=== PATIENT | female | born 1950 | race Hispanic/Latino ===

== ENCOUNTER → 2018-01-10 | Outpatient (CLI) | payer OTHER ==
[~2018-01-10] MED LIST: CALC-877 PO; CHOL100040 PO; DORZ10DR10 OU; EYEL15SP OU; RALO60TA PO; XALA2.5OS OU; [UNRECOGNIZED DRUG - OTHER]; estradiol VG; omega 3 PO; prelief
== END ==
LOC: RAH 10:27
PROVIDERS: ATTEND Physician Assistant Medical
DX: Z12.31 Encounter for screening mammogram for malignant neoplasm of breast (principal)
CPT/HCPCS: 77067

== ENCOUNTER 2018-02-01 07:55 | Day surgery (SDC) | payer OTHER ==
[~2018-02-01] VITALS: Ht 149.9 cm; Wt 52.3 kg
[~2018-02-01 07:55] MED LIST changes: +SODIUM CHLORIDE 0.9% 1000ML 1,000 ML IV ONE
[2018-02-01] MEDS ORDERED: FENTANYL CITRATE PF 50 MCG/1 ML 2ML VIAL ONE (09:13)
[2018-02-01] MEDS ORDERED: PROPOFOL 10 MG/ML 20ML VIAL IV ONE ×2 (09:13)
[2018-02-01 09:37] VITALS: BP 67/29
== END 2018-02-01 10:15 | disposition home or self-care (01) ==
LOC: DAH 07:55 → ENDO 07:55
PROVIDERS: ATTEND Internal Medicine Gastroenterology
DX: Z12.11 Encounter for screening for malignant neoplasm of colon (principal); Z98.890 Other specified postprocedural states; H40.9 Unspecified glaucoma; Z79.899 Other long term (current) drug therapy; K56.2 Volvulus
CPT/HCPCS: A4606; G0121; J2704 ×2; J3010; J7030

== ENCOUNTER → 2019-01-11 | Outpatient (CLI) | payer OTHER ==
[~2019-01-11] MED LIST changes: -SODIUM CHLORIDE 0.9% 1000ML 1,000 ML IV ONE
== END ==
LOC: RAH 11:17
PROVIDERS: ATTEND Internal Medicine Critical Care Medicine
DX: Z12.31 Encounter for screening mammogram for malignant neoplasm of breast (principal)
CPT/HCPCS: 77067

== ENCOUNTER → 2020-01-15 | Outpatient (CLI) | payer OTHER | END | disposition home or self-care (01) | LOC: RAH 11:43 | PROVIDERS: ATTEND Internal Medicine Critical Care Medicine | DX: Z12.31 Encounter for screening mammogram for malignant neoplasm of breast (principal) | CPT/HCPCS: 77067 ==

== ENCOUNTER → 2021-02-10 | Outpatient (CLI) | payer OTHER | END | disposition home or self-care (01) | LOC: RAH 10:51 | PROVIDERS: ATTEND Internal Medicine Critical Care Medicine | DX: Z12.31 Encounter for screening mammogram for malignant neoplasm of breast (principal); N64.89 Other specified disorders of breast | CPT/HCPCS: 77067 ==

== ENCOUNTER 2023-02-05 18:53 | Inpatient (IN) | payer OTHER ==
[~2023-02-05] VITALS: Ht 152.4 cm; Wt 52.3 kg
[~2023-02-05 18:53] MED LIST changes: -[UNRECOGNIZED DRUG - OTHER]; +[UNRECOGNIZED DRUG - OTHER] PO
[2023-02-05 19:26] LABS: APPEARANCE,URINE CLEAR (CLEAR); BILIRUBIN,URINE NEGATIVE (NEGATIVE); COLOR,URINE LIGHT-YELLOW (YELLOW); GLUCOSE, URINE (UA) NEGATIVE (NEGATIVE); KETONES,URINE 10 mg/dL (NEGATIVE); LEUKOCYTE ESTERASE ,URINE NEGATIVE Leu/uL (NEGATIVE); NITRATE,URINE NEGATIVE (NEGATIVE); OCCULT BLOOD,URINE SMALL (NEGATIVE); PH,URINE 5.5 (5.0-8.0); PROTEIN,URINE 50 mg/dL (NEGATIVE); UROBILINOGEN,URINE 0.2 mg/dL (0.2-1.0)
[2023-02-05 19:30] LABS: MUCUS,URINE RARE LPF (None Seen); SQUAMOUS EPITHELIAL CELL,UR FEW /HPF (0-2)
[2023-02-05 20:08] LABS: BASOPHILS % (AUTO) 0.6 % (0.0-5.0); EOSINOPHILS % (AUTO) 1.4 % (0.0-8.0); LYMPHOCYTES % (AUTO) 17.8 % (21.0-51.0); MEAN CORPUSCULAR HEMOGLOBIN 32.2 pg (27.0-33.0); MEAN CORPUSCULAR HGB CONC 33.1 g/dL (32.0-36.0); MEAN CORPUSCULAR VOLUME 97.2 fL (79-99); MONOCYTES % (AUTO) 8.2 % (3.0-13.0); NEUTROPHILS % (AUTO) 63.7 % (40.0-77.0); NUCLEATED RED BLOOD CELLS 6.2 % (0.0-0.19); PLATELET COUNT (AUTO) 197 K/uL (130-400); RED BLOOD CELL COUNT(AUTO) 1.43 MIL/uL (4.00-5.50); RED CELL DISTRIBUTION WIDTH 15.4 % (11.0-15.5); WHITE BLOOD COUNT (AUTO) 14.9 K/uL (4.8-10.8)
[2023-02-05 20:21] LABS: HEMATOCRIT 13.9 % (36-48)
[2023-02-05 20:38] LABS: ALBUMIN 3.4 g/dL (3.5-5.0); CREATININE 0.8 mg/dL (0.5-1.5); POTASSIUM 3.3 mmol/L (3.5-5.1); TOTAL PROTEIN, SERUM 5.5 g/dL (6.0-8.3)
[2023-02-05] MEDS ORDERED: PANTOPRAZOLE 40 MG/VIAL IVP STA (20:46)
[2023-02-05 20:56] LABS: BAND NEUTROPHILS % (MANUAL) 6 % (0-2); LYMPHOCYTES % (MANUAL) 22 % (22-44); MAN.DIFF COMMENT-IMPRESSION MANUAL DIFFERENTIAL; MONOCYTES % (MANUAL) 3 % (2-9); PLATELET MORPHOLOGY COMMENT ADEQUATE; SEGMENTED NEUTROPHILS % 69 % (40-70)
[2023-02-05] MEDS ORDERED: PANTOPRAZOLE 40 MG/VIAL ONE (21:11)
[2023-02-05] MEDS ORDERED: ONDANSETRON 4MG INJ IV PRN (23:30)
[2023-02-05] MEDS ORDERED: ACETAMINOPHEN 325 MG TAB PO PRN ×2 (23:30)
[2023-02-05] MEDS ORDERED: OCTREOTIDE ACETATE 100 MCG/ML AMP IV ONE (23:30)
[2023-02-05] MEDS ORDERED: MORPHINE 2 MG SYG IV PRN (23:30)
[2023-02-05] MEDS ORDERED: OCTREOTIDE ACETATE 1,250 MCG in 0.9% NACL 250ML 250 ML IV SCH (23:30)
[2023-02-05] MEDS ORDERED: OCTREOTIDE ACETATE 200 MCG/ML 5 ML VIAL ONE (23:33)
[2023-02-05] MEDS ORDERED: OCTREOTIDE ACETATE 100 MCG/ML AMP ONE (23:33)
[2023-02-05] MEDS: 0.9%NACL 1000ML 1,000 ML IV SCH (23:39)
[2023-02-06] VITALS (11 sets, daily range): BP systolic 107–139; BP diastolic 49–69
[2023-02-06 00:02] LABS: INR 0.99 (0.85-1.15); PROTHROMBIN TIME 10.8 SEC (9.6-11.6)
[2023-02-06 00:03] LABS: PARTIAL THROMBOPLASTIN TIME 21.8 SEC (26.3-35.5)
[2023-02-06 04:26] LABS: BASOPHILS % (AUTO) 2.1 % (0.0-5.0); EOSINOPHILS % (AUTO) 2.8 % (0.0-8.0); HEMATOCRIT 25.1 % (36-48); LYMPHOCYTES % (AUTO) 22.2 % (21.0-51.0); MEAN CORPUSCULAR HEMOGLOBIN 29.2 pg (27.0-33.0); MEAN CORPUSCULAR HGB CONC 33.9 g/dL (32.0-36.0); MEAN CORPUSCULAR VOLUME 86.3 fL (79-99); MONOCYTES % (AUTO) 10.2 % (3.0-13.0); NEUTROPHILS % (AUTO) 55.4 % (40.0-77.0); NUCLEATED RED BLOOD CELLS 6.4 % (0.0-0.19); PLATELET COUNT (AUTO) 207 K/uL (130-400); RED BLOOD CELL COUNT(AUTO) 2.91 MIL/uL (4.00-5.50); RED CELL DISTRIBUTION WIDTH 18.1 % (11.0-15.5); WHITE BLOOD COUNT (AUTO) 14.2 K/uL (4.8-10.8)
[2023-02-06 04:47] LABS: CREATININE 0.7 mg/dL (0.5-1.5); MAGNESIUM 2.1 mg/dL (1.80-2.40); POTASSIUM 3.5 mmol/L (3.5-5.1)
[2023-02-06 05:03] LABS: % IRON SATURATION 49.4 % (22-44)
[2023-02-06 09:39] LABS: HEMATOCRIT 24.3 % (36-48)
[2023-02-06] MEDS: 0.9%NACL 1000ML 1,000 ML IV SCH (10:00)
[2023-02-06] MEDS: PANTOPRAZOLE 40 MG/VIAL IVP SCH ×2 (10:00→20:17)
[2023-02-06 10:20] LABS: THYROID STIMULATING HORMONE 0.74 uIU/mL (0.36-3.74)
[2023-02-06] MEDS ORDERED: SIMV10TA97 PO (10:22)
[2023-02-06 11:10] LABS: HEMOGLOBIN A1C 5.5 % (4.0-6.0)
[2023-02-06] MEDS ORDERED: ACETAMINOPHEN 325 MG TAB PO PRN (12:30)
[2023-02-06] MEDS ORDERED: ONDANSETRON 4MG INJ IVP PRN (12:30)
[2023-02-06] MEDS: SUCRALFATE 1 GM TABLET PO SCH (21:37)
[2023-02-07] VITALS (17 sets, daily range): BP systolic 108–135; BP diastolic 61–72
[2023-02-07 03:37] LABS: BASOPHILS % (AUTO) 1.5 % (0.0-5.0); EOSINOPHILS % (AUTO) 5.3 % (0.0-8.0); HEMATOCRIT 26.9 % (36-48); LYMPHOCYTES % (AUTO) 21.4 % (21.0-51.0); MEAN CORPUSCULAR HEMOGLOBIN 29.4 pg (27.0-33.0); MEAN CORPUSCULAR HGB CONC 33.8 g/dL (32.0-36.0); MEAN CORPUSCULAR VOLUME 86.8 fL (79-99); MONOCYTES % (AUTO) 11.1 % (3.0-13.0); NEUTROPHILS % (AUTO) 53.7 % (40.0-77.0); NUCLEATED RED BLOOD CELLS 5.5 % (0.0-0.19); PLATELET COUNT (AUTO) 227 K/uL (130-400); RED CELL DISTRIBUTION WIDTH 19.2 % (11.0-15.5); WHITE BLOOD COUNT (AUTO) 11.9 K/uL (4.8-10.8)
[2023-02-07 03:43] LABS: CREATININE 0.7 mg/dL (0.5-1.5); POTASSIUM 3.6 mmol/L (3.5-5.1)
[2023-02-07 05:20] LABS: BAND NEUTROPHILS % (MANUAL) 9 % (0-2); BASOPHILS % (MANUAL) 2 % (0-2); EOSINOPHILS % (MANUAL) 4 % (1-6); LYMPHOCYTES % (MANUAL) 23 % (22-44); MAN.DIFF COMMENT-IMPRESSION MANUAL DIFFERENTIAL; MONOCYTES % (MANUAL) 8 % (2-9); PLATELET MORPHOLOGY COMMENT ADEQUATE; REACTIVE LYMPHOCYTES 1 % (0-0); SEGMENTED NEUTROPHILS % 53 % (40-70)
[2023-02-07] MEDS: SUCRALFATE 1 GM TABLET PO SCH ×3 (05:21→20:32)
[2023-02-07] MEDS ORDERED: SIMETHICONE 40 MG/0.6 ML ML ONE (06:59)
[2023-02-07] MEDS ORDERED: PROPOFOL 10 MG/ML 20ML VIAL IV ONE (07:01)
[2023-02-07] MEDS ORDERED: LIDOCAINE HCL 1% 20 ML VIAL ONE (07:02)
[2023-02-07] MEDS ORDERED: PEG 3350/NA SULF,BICARB,CL/KCL 4000 ML SOLN PO SCH (07:30)
[2023-02-07] MEDS ORDERED: 0.9%NACL 1000ML 1,000 ML IV ONE (09:31)
[2023-02-07] MEDS: ARTIFICAL TEARS SOL 15 ML OU SCH ×2 (09:48→20:45)
[2023-02-07] MEDS: PANTOPRAZOLE 40 MG/VIAL IVP SCH ×2 (10:13→20:32)
[2023-02-07 10:34] LABS: HEMATOCRIT 26.9 % (36-48)
[2023-02-07] MEDS: DORZOLAMIDE HCL/TIMOLOL MALEAT DROPS 10 ML BOTTLE OU SCH ×2 (15:08→20:33)
[2023-02-07 16:02] LABS: HEMATOCRIT 28.4 % (36-48)
[2023-02-07] MEDS: LATANOPROST 2.5 ML DROPS OU SCH (20:33)
[2023-02-07 22:29] LABS: HEMATOCRIT 30.1 % (36-48)
[2023-02-08] VITALS (20 sets, daily range): BP systolic 87–134; BP diastolic 44–76
[2023-02-08 04:44] LABS: HEMATOCRIT 26.6 % (36-48)
[2023-02-08] MEDS: SUCRALFATE 1 GM TABLET PO SCH ×3 (05:14→21:46)
[2023-02-08 07:15] LABS: MEAN CORPUSCULAR HEMOGLOBIN 28.9 pg (27.0-33.0); MEAN CORPUSCULAR HGB CONC 32.7 g/dL (32.0-36.0); MEAN CORPUSCULAR VOLUME 88.2 fL (79-99); NUCLEATED RED BLOOD CELLS 1.9 % (0.0-0.19); RED BLOOD CELL COUNT(AUTO) 3.05 MIL/uL (4.00-5.50); RED CELL DISTRIBUTION WIDTH 20.3 % (11.0-15.5); WHITE BLOOD COUNT (AUTO) 11.3 K/uL (4.8-10.8)
[2023-02-08 07:20] LABS: CREATININE 0.6 mg/dL (0.5-1.5); POTASSIUM 3.7 mmol/L (3.5-5.1)
[2023-02-08] MEDS ORDERED: 0.9%NACL 1000ML 1,000 ML IV ONE (07:36)
[2023-02-08] MEDS: PANTOPRAZOLE 40 MG/VIAL IVP SCH ×2 (08:07→21:46)
[2023-02-08] MEDS: DORZOLAMIDE HCL/TIMOLOL MALEAT DROPS 10 ML BOTTLE OU SCH ×3 (08:13→21:47)
[2023-02-08] MEDS: ARTIFICAL TEARS SOL 15 ML OU SCH ×2 (09:00→21:48)
[2023-02-08 10:32] LABS: HEMATOCRIT 29.8 % (36-48)
[2023-02-08] MEDS ORDERED: PROPOFOL 10 MG/ML 20ML VIAL IV ONE ×2 (15:01→15:02)
[2023-02-08] MEDS ORDERED: LIDOCAINE PF 100MG/5ML (2%) SYRINGE 5ML ONE (15:02)
[2023-02-08] MEDS: LATANOPROST 2.5 ML DROPS OU SCH (21:48)
[2023-02-09 03:46] VITALS: BP 114/62
[2023-02-09 07:15] VITALS: BP 124/61
[2023-02-09] MEDS: DORZOLAMIDE HCL/TIMOLOL MALEAT DROPS 10 ML BOTTLE OU SCH (09:00)
[2023-02-09] MEDS: ARTIFICAL TEARS SOL 15 ML OU SCH (09:00)
[2023-02-09 11:15] VITALS: BP 108/62
[2023-02-09] MEDS: PANTOPRAZOLE 40 MG/VIAL IVP SCH (11:22)
[2023-02-09] MEDS: SUCRALFATE 1 GM TABLET PO SCH (11:22)
[2023-02-09] MEDS ORDERED: SUCR1TAB2 PO (11:59)
[2023-02-09] MEDS ORDERED: OMEP40CA21 PO (11:59)
== END 2023-02-09 15:57 | disposition home or self-care (01) | DRG 377 ==
LOC: EDH 18:53 → EDHIP 23:05 → 2CV 02-06 07:55 → 2AH 02-06 14:41 → 3AH 02-08 23:30
PROVIDERS: ADMIT Internal Medicine; ATTEND Internal Medicine
PROC: 30233N1 Transfusion of Nonautologous Red Blood Cells into Peripheral Vein, Percutaneous Approach (ICD-10-PCS; 2023-02-05)
PROC: 0DJ08ZZ Inspection of Upper Intestinal Tract, Via Natural or Artificial Opening Endoscopic (ICD-10-PCS; principal; 2023-02-07)
PROC: 0W3P8ZZ Control Bleeding in Gastrointestinal Tract, Via Natural or Artificial Opening Endoscopic (ICD-10-PCS; 2023-02-08)
DX: K55.21 Angiodysplasia of colon with hemorrhage (principal); J12.82 Pneumonia due to coronavirus disease 2019; U07.1 COVID-19; R57.8 Other shock; D62 Acute posthemorrhagic anemia; J44.0 Chronic obstructive pulmonary disease with (acute) lower respiratory infection; E87.1 Hypo-osmolality and hyponatremia; K29.61 Other gastritis with bleeding; N30.20 Other chronic cystitis without hematuria; E87.6 Hypokalemia; M54.30 Sciatica, unspecified side; G89.29 Other chronic pain; M41.9 Scoliosis, unspecified; E78.00 Pure hypercholesterolemia, unspecified; E86.1 Hypovolemia; F17.210 Nicotine dependence, cigarettes, uncomplicated; Z80.0 Family history of malignant neoplasm of digestive organs; Z86.73 Personal history of transient ischemic attack (TIA), and cerebral infarction without residual deficits; Z79.1 Long term (current) use of non-steroidal anti-inflammatories (NSAID); Z90.49 Acquired absence of other specified parts of digestive tract; Z51.5 Encounter for palliative care
CPT/HCPCS: 36415; 36430; 43235; 45382; 71045; 74176; 80048; 80053; 81001; 82550; 82607; 82728; 82746; 83036; 83540; 83550; 83605; 83735; 83874; 83880; 84100; 84439; 84443; 84481; 84484; 85007; 85014; 85018; 85025; 85027; 85384; 85610; 85730; 86850; 86900; 86901; 86923; 87635; 93005; 99291; A4606; C9113; G0378; J2001; J2354; J2704; J7030; J7050; P9016

== ENCOUNTER → 2023-02-26 | Outpatient (CLI) | payer OTHER ==
[~2023-02-26] MED LIST changes: +OMEP40CA21 PO; -RALO60TA PO; +SIMV10TA97 PO; +SUCR1TAB2 PO; -estradiol VG; -omega 3 PO; -prelief
== END | disposition home or self-care (01) ==
LOC: RAH 10:09
PROVIDERS: ATTEND Internal Medicine Critical Care Medicine
DX: Z12.31 Encounter for screening mammogram for malignant neoplasm of breast (principal)
CPT/HCPCS: 77067

== ENCOUNTER 2023-07-30 12:41 | Emergency (ER) | payer OTHER ==
[~2023-07-30] VITALS: Ht 152.4 cm; Wt 55.8 kg
[2023-07-30 17:25] LABS: BASOPHILS # (AUTO) 0.08 K/uL (0.00-0.20); BASOPHILS % (AUTO) 0.8 % (0.0-5.0); EOSINOPHILS # (AUTO) 0.67 K/uL (0.00-0.70); HEMATOCRIT 37.2 % (36-48); IMMATURE GRANULOCYTE ABSOLUTE 0.09 K/uL (0-1); LYMPHOCYTES # (AUTO) 2.2 K/uL (1.0-4.8); LYMPHOCYTES % (AUTO) 22.6 % (21.0-51.0); MEAN CORPUSCULAR HEMOGLOBIN 30.5 pg (27.0-33.0); MEAN CORPUSCULAR HGB CONC 33.1 g/dL (32.0-36.0); MEAN CORPUSCULAR VOLUME 92.3 fL (79-99); MONOCYTES # (AUTO) 0.9 K/uL (0.1-1.0); NEUTROPHILS # (AUTO) 5.8 K/uL (1.8-7.7); NEUTROPHILS % (AUTO) 59.7 % (40.0-77.0); PLATELET COUNT (AUTO) 361 K/uL (130-400); RED BLOOD CELL COUNT(AUTO) 4.03 MIL/uL (4.00-5.50); RED CELL DISTRIBUTION WIDTH 15.5 % (11.0-15.5); WHITE BLOOD COUNT (AUTO) 9.6 K/uL (4.8-10.8)
[2023-07-30 17:37] LABS: CREATININE 0.7 mg/dL (0.5-1.5)
[2023-07-30 17:42] LABS: ALBUMIN 4.1 g/dL (3.5-5.0); BILIRUBIN,TOTAL 0.4 mg/dL (0.2-1.0); TOTAL PROTEIN, SERUM 7.6 g/dL (6.0-8.3)
[2023-07-30] MEDS ORDERED: medrol dose pack PO (19:23)
[2023-07-30 19:28] VITALS: BP 134/82; PULSE 74; RESP 20; O2SAT 99
== END 2023-07-30 19:43 | disposition home or self-care (01) ==
LOC: EDH 12:41
DX: R51.9 Headache, unspecified (principal); H53.8 Other visual disturbances; E78.00 Pure hypercholesterolemia, unspecified; Z90.49 Acquired absence of other specified parts of digestive tract; Z79.899 Other long term (current) drug therapy; Z98.890 Other specified postprocedural states
CPT/HCPCS: 36415; 70450; 80053; 85025

== ENCOUNTER → 2023-08-09 | Outpatient (CLI) | payer OTHER ==
[~2023-08-09] MED LIST changes: +GADOTERATE MEGLUMINE 10 MMOL/20 ML VIAL IV ONE; +medrol dose pack PO
== END | disposition home or self-care (01) ==
LOC: RAH 09:47
PROVIDERS: ATTEND Internal Medicine Critical Care Medicine
DX: H49.22 Sixth [abducent] nerve palsy, left eye (principal)
CPT/HCPCS: 70553; A9575

== ENCOUNTER → 2023-08-12 | Outpatient (CLI) | payer OTHER ==
[~2023-08-12] MED LIST changes: -GADOTERATE MEGLUMINE 10 MMOL/20 ML VIAL IV ONE
== END | disposition home or self-care (01) ==
LOC: RAH 11:01
PROVIDERS: ATTEND Internal Medicine Critical Care Medicine
DX: I70.0 Atherosclerosis of aorta (principal); H49.22 Sixth [abducent] nerve palsy, left eye
CPT/HCPCS: 70544

== ENCOUNTER → 2024-03-22 | Outpatient (CLI) | payer OTHER | END | disposition home or self-care (01) | LOC: RAH 10:47 | PROVIDERS: ATTEND Internal Medicine Critical Care Medicine | DX: Z12.31 Encounter for screening mammogram for malignant neoplasm of breast (principal) | CPT/HCPCS: 77067 ==

== ENCOUNTER → 2025-03-23 | Outpatient (CLI) | payer OTHER | END | disposition home or self-care (01) | LOC: RAH 13:42 | PROVIDERS: ATTEND Internal Medicine Critical Care Medicine | DX: Z12.31 Encounter for screening mammogram for malignant neoplasm of breast (principal) | CPT/HCPCS: 77067 ==